=== PATIENT | male | born 1970 | race Caucasian/White ===

== ENCOUNTER 2020-03-10 10:23 | Inpatient (IN) | payer OTHER ==
[~2020-03-10] VITALS: Ht 180.3 cm; Wt 88.2 kg
[2020-03-10] VITALS (16 sets, daily range): BP systolic 109–144; BP diastolic 69–98
[2020-03-10] MEDS ORDERED: normal saline 1000ML IV soln IVB ONE (10:45)
[2020-03-10] MEDS ORDERED: morphine 10mg/ml inj. IV ONE (10:50)
[2020-03-10] MEDS ORDERED: ondansetron 4mg rapidly disintigrating tab PO ONE (10:50)
[2020-03-10 11:11] LABS: BASOPHILS % (AUTO) 0.1 % (0-1); EOSINOPHILS % (AUTO) 0.2 % (0-6); HEMOGLOBIN 15.5 g/dl (14.0-17.9); LYMPHOCYTES # (AUTO) 1.4 X10'3 (1.1-4.8); LYMPHOCYTES % (AUTO) 9.2 % (21-51); MEAN CORPUSCULAR HEMOGLOBIN 31.3 PG (27.0-31.0); MEAN CORPUSCULAR HGB CONC 33.6 g/dL (33.0-36.5); MEAN PLATELET VOLUME 8.4 FL (7.4-10.4); MONOCYTES # (AUTO) 1.3 X10'3 (0-0.9); MONOCYTES % (AUTO) 8.4 % (2-12); NEUTROPHILS # (AUTO) 12.6 X10'3 (1.8-7.7); NEUTROPHILS % (AUTO) 82.1 % (42-75); PLATELET COUNT 256 X10'3 (140-440); RED BLOOD COUNT 4.94 X10'6 (4.70-6.10); RED CELL DISTRIBUTION WIDTH 13.2 % (11.5-14.5); WHITE BLOOD COUNT 15.4 X10'3 (4.5-11.0)
[2020-03-10 11:24] LABS: PARTIAL THROMBOPLASTIN TIME 32 SECONDS (22-32)
[2020-03-10 11:33] LABS: ALANINE AMINOTRANSFERASE 27 U/L (12-78); ALBUMIN 3.9 G/DL (3.4-5.0); ALBUMIN/GLOBULIN RATIO 0.8 (1.1-1.5); ALKALINE PHOSPHATASE 104 IU/L (46-116); ANION GAP 12 (8-16); ASPARTATE AMINO TRANSFERASE 17 U/L (10-37); BILIRUBIN,TOTAL 0.8 MG/DL (0.1-1.0); BLOOD UREA NITROGEN 13 MG/DL (7-18); BUN/CREATININE RATIO 12.5 (5.4-32.0); CALCIUM 9.5 MG/DL (8.5-10.1); CHLORIDE 102 MMOL/L (99-107); CREATININE 1.04 MG/DL (0.60-1.10); GLUCOSE 112 MG/DL (70-104); MAGNESIUM 2.1 MG/DL (1.5-2.4); POTASSIUM 3.8 MMOL/L (3.5-5.1); SODIUM 139 MMOL/L (135-145); TOTAL CARBON DIOXIDE 25.5 MMOL/L (24-32); TOTAL PROTEIN 8.8 G/DL (6.4-8.2); eGFR 76 ML/MIN
[2020-03-10] MEDS ORDERED: piperacillin/tazo 3.375gm/50ml 50 ML IV ONE (11:35)
[2020-03-10] MEDS ORDERED: vancomycin/NS 1 GM ADD-VANTAGE 250 ML IV ONE (11:35)
[2020-03-10] MEDS ORDERED: normal saline 1000ML IV soln IV ONE (11:40)
[2020-03-10] MEDS ORDERED: NO HOME MEDS (11:47)
[2020-03-10] MEDS ORDERED: acetaminophen 650mg rectal suppository RC PRN (12:10)
[2020-03-10] MEDS ORDERED: mag hydrox/Alum hydrox/simeth 30ml oral suspension PO PRN (12:10)
[2020-03-10] MEDS ORDERED: potassium Cl 20 mEq SR tablet PO PRN ×2 (12:10)
[2020-03-10] MEDS ORDERED: metoclopramide 5 mg/ml inj IV PRN (12:10)
[2020-03-10] MEDS ORDERED: bisacodyl 10mg suppository rectal RC PRN (12:10)
[2020-03-10] MEDS ORDERED: magnesium 2GM in 50ml NS 50 ML IV PRN (12:10)
[2020-03-10] MEDS ORDERED: magnesium hydroxide 30ml (MOM) UD suspension PO PRN (12:10)
[2020-03-10] MEDS ORDERED: magnesium 4gm in 100ml NS 100 ML IV PRN (12:10)
[2020-03-10] MEDS ORDERED: HYDROmorphone inj. 0.5 MG/0.5 ML DISP.SYRIN IV PRN (12:10)
[2020-03-10] MEDS ORDERED: HYDROcodone/acetaminophen 10/325mg tab PO PRN (12:10)
[2020-03-10] MEDS ORDERED: acetaminophen 325mg tablet PO PRN ×2 (12:10)
[2020-03-10] MEDS ORDERED: HYDROcodone/acetaminophen 5mg/325mg tablet PO PRN (12:10)
[2020-03-10] MEDS ORDERED: HYDROmorphone 1 mg/ml syringe IV PRN (12:10)
[2020-03-10] MEDS ORDERED: magnesium Cl slow-release 64mg tablet PO PRN (12:10)
[2020-03-10] MEDS ORDERED: potassium CL 10mEq/100ml bag 100 ML IV PRN ×2 (12:10)
[2020-03-10] MEDS ORDERED: ondansetron/PF 4mg/2ml inj IV PRN ×2 (12:10→15:45)
--- NOTE | 2020-03-10 13:58 | NUR ---
Patient just got here from ER. Patient alert, oriented x 4. Per Dr. Nolasco, we should start contact isolation precaution as patient has history of MRSA. Isolation precaution initiated.
--- NOTE | 2020-03-10 14:47 | NUR ---
Notified OR Charge nurse Nayan about patient history of MRSA and that Dr. Nolasco requesting wound culture done during surgery. He said he will make note of it
[2020-03-10 14:56] LABS: CLARITY,URINE CLEAR (Clear); COLOR,URINE YELLOW (Yellow); GLUCOSE, URINE NEGATIVE (Neg); KETONES,URINE 15 mg/dl (Neg); LEUKOCYTE ESTERASE ,URINE NEGATIVE (Neg); NITRITES, URINE NEGATIVE (Neg); OCCULT BLOOD,URINE LARGE (Neg); PH,URINE 5.5 (4.8-8.0); PROTEIN,URINE 30 mg/dl (Neg)
[2020-03-10 15:05] LABS: UA COLLECTION TYPE CLN CATCH MIDSTREAM
[2020-03-10 15:06] LABS: BACTERIA,URINE 1+ /HPF (Neg); MUCUS STRANDS FEW /LPF (Neg); SQUAMOUS EPITHELIAL CELL,UR FEW /LPF (FEW)
[2020-03-10 15:07] LABS: WBC,URINE 0-4 /HPF (0-4)
[2020-03-10 15:08] LABS: COARSE GRANULAR CAST 0-3 /LPF (NEGATIVE); HYALINE CASTS 0-3 /LPF (NEGATIVE)
[2020-03-10] MEDS ORDERED: ringers solution, lacted 1,000 ML IV SCH (15:44)
[2020-03-10] MEDS ORDERED: morphine 2 MG/ML inj. syringe IV PRN (15:45)
[2020-03-10] MEDS ORDERED: morphine 4 MG/ML inj SYRINge IV PRN (15:45)
[2020-03-10] MEDS ORDERED: proCHLORperazine 10 MG/2 ml inj IV PRN (15:45)
[2020-03-10] MEDS ORDERED: meperidine/PF 25mg/ml syringe IV PRN ×3 (15:45)
[2020-03-10] MEDS ORDERED: acetaminophen 1,000mg/100ml IV 100 ML IV PRN (15:45)
[2020-03-10] MEDS ORDERED: ketorolac trometh. 30mg/ml inj. IV ONE (15:45)
[2020-03-10] MEDS ORDERED: sevoflurane 250ml liquid IH ONE (15:54)
[2020-03-10] MEDS ORDERED: midazolam 2 mg/2 ml injection ONE (15:59)
[2020-03-10] MEDS ORDERED: fentaNYL/PF 50MCG/1 ML 2ML syringe ONE (15:59)
[2020-03-10] MEDS ORDERED: famotidine/PF 10 mg/ml inj IV ONE ×2 (16:00→16:08)
--- NOTE | 2020-03-10 16:00 | NUR ---
Patient went to OR for surgery, Zosyn IV due were not available to sent with patient. Recovery Room nurse Matilde notified about this.
[2020-03-10] MEDS ORDERED: propofol inj 20 ML IV ONE (16:17)
[2020-03-10] MEDS ORDERED: dexamethasone sod phosphate 4mg/ml inj. ONE (16:17)
[2020-03-10] MEDS ORDERED: LIDOcaine 2% (20mg/ml) 5ml vial ONE (16:17)
--- NOTE | 2020-03-10 16:31 | NUR ---
Received from OR via surgical bed, accompanied by Anesthesiologist Toan and report given by Anesthesiolgist. Surgical site with packing no drainage. VS stable, 20G right AC and LR IVF running 100cc/hr. SCDs on, pt responding to questions.
[2020-03-10] MEDS: piperacillin/tazo 3.375gm/50ml 50 ML IV SCH ×2 (17:31→23:33)
--- NOTE | 2020-03-10 17:41 | NUR ---
Report called to receiving nurse. Transferred via surgical bed. Belongings remain in patient's room. Special Issues communicated to receiving nurse Trista CIFUENTES. BLL call light within reach Post op VS stable. Pt states he still does not want to take pain meds at this time. Packing remains in place.
[2020-03-10] MEDS: normal saline 1000ml 1,000 ML IV SCH (17:58)
--- NOTE | 2020-03-10 18:10 | NUR ---
Patient in room [facility]. I have received report from Trista CIFUENTES and had the opportunity to ask questions and assume patient care.
--- NOTE | 2020-03-10 18:10 | NUR ---
Problems reprioritized. Patient report given, questions answered & plan of care reviewed with Bailee CIFUENTES.
[2020-03-10] MEDS: K and/or MAG REPLACEMENT MC SCH (19:10)
[2020-03-10] MEDS: docusate sod 100mg capsule PO SCH (19:16)
[2020-03-10] MEDS: VANCOmycin 1250MG/NS 250ml Bag 250 ML IV SCH (19:32)
[2020-03-10] MEDS ORDERED: temazepam 15mg capsule PO PRN (21:00)
[2020-03-11] VITALS: BP 114/67
[2020-03-11 04:00] VITALS: BP 121/74
[2020-03-11] MEDS: VANCOmycin 1250MG/NS 250ml Bag 250 ML IV SCH (04:34)
[2020-03-11] MEDS: normal saline 1000ml 1,000 ML IV SCH ×2 (04:34→08:09)
[2020-03-11 05:39] LABS: BASOPHILS % (AUTO) 0.2 % (0-1); EOSINOPHILS % (AUTO) 0 % (0-6); HEMATOCRIT 41.5 % (42.0-52.0); LYMPHOCYTES # (AUTO) 0.8 X10'3 (1.1-4.8); LYMPHOCYTES % (AUTO) 7.5 % (21-51); MEAN CORPUSCULAR HGB CONC 33.7 g/dL (33.0-36.5); MEAN CORPUSCULAR VOLUME 92.1 FL (78-98); MEAN PLATELET VOLUME 8.8 FL (7.4-10.4); MONOCYTES # (AUTO) 0.6 X10'3 (0-0.9); MONOCYTES % (AUTO) 5.3 % (2-12); NEUTROPHILS # (AUTO) 9.5 X10'3 (1.8-7.7); PLATELET COUNT 252 X10'3 (140-440); RED CELL DISTRIBUTION WIDTH 12.6 % (11.5-14.5); WHITE BLOOD COUNT 10.9 X10'3 (4.5-11.0)
[2020-03-11 06:04] LABS: ALANINE AMINOTRANSFERASE 27 U/L (12-78); ALBUMIN/GLOBULIN RATIO 0.7 (1.1-1.5); ALKALINE PHOSPHATASE 85 IU/L (46-116); ANION GAP 11 (8-16); ASPARTATE AMINO TRANSFERASE 15 U/L (10-37); BILIRUBIN,TOTAL 0.7 MG/DL (0.1-1.0); BLOOD UREA NITROGEN 11 MG/DL (7-18); BUN/CREATININE RATIO 12.1 (5.4-32.0); CALCIUM 8.5 MG/DL (8.5-10.1); CHLORIDE 104 MMOL/L (99-107); CREATININE 0.91 MG/DL (0.60-1.10); GLUCOSE 122 MG/DL (70-104); MAGNESIUM 2.2 MG/DL (1.5-2.4); POTASSIUM 3.6 MMOL/L (3.5-5.1); SODIUM 139 MMOL/L (135-145); TOTAL CARBON DIOXIDE 24.2 MMOL/L (24-32); TOTAL PROTEIN 7.2 G/DL (6.4-8.2); eGFR 88 ML/MIN
--- NOTE | 2020-03-11 06:33 | NUR ---
Patient in room [facility] 340. I have received report from Nika CIFUENTES and had the opportunity to ask questions and assume patient care.
[2020-03-11 07:00] VITALS: BP 139/89
[2020-03-11] MEDS: K and/or MAG REPLACEMENT MC SCH (08:00)
[2020-03-11] MEDS: piperacillin/tazo 3.375gm/50ml 50 ML IV SCH (08:32)
[2020-03-11] MEDS: docusate sod 100mg capsule PO SCH (08:34)
--- NOTE | 2020-03-11 09:41 | NUR ---
PAGER ID: [phone] MESSAGE: Nika-Surg [phone] Re: Rose Charge wants me to notify you that Dr Coleman is ok for patient to be discharged when you see them, Thank You
[2020-03-11 11:00] VITALS: BP_SYST 139; BP_SYST 143; BP_DIAS 89; BP_DIAS 95
--- NOTE | 2020-03-11 12:30 | NUR ---
PAGER ID: [phone] MESSAGE: Nika-Surg [id number] Re: Yasmanially do you want patient to have 1200 Vancomycin before discharge ? Addendum: 03/11/20 at 1231 by Nika Abdalla RN Per Dr Nolasco don't need to given antibiotic prior to discharge
--- NOTE | 2020-03-11 14:00 | NUR ---
Patients discharge instructions reviewed with patient and patient verbalized understanding. Patients Packing removed per Dr Coleman instructions. I&D site looks good patient tolerated well. Patient given fresh pair of underwear to wear and and ABD pad to place in underwear for drainage. Patient was given extra ABD dressings for home , santi bottle for cleaning after bowel movements. Patient instructed to have cleanse in the shower with removable shower head multiple times a day, patient verbalized understanding. Patient ambulated to his vehicle with IRVING Garcia, patient states he has all his belongings.
[2020-03-11] MEDS ORDERED: VANCOMYCIN LEVEL IV ONE (19:30)
== END 2020-03-11 14:02 | disposition home or self-care (01) | DRG 346 ==
LOC: ER 10:25 → SUR 3N 12:09
PROVIDERS: ADMIT Family Medicine; ATTEND Family Medicine
PROC: 0D9P0ZZ Drainage of Rectum, Open Approach (ICD-10-PCS; principal; 2020-03-11)
DX: K61.1 Rectal abscess (principal); I10 Essential (primary) hypertension; K62.89 Other specified diseases of anus and rectum; Z86.14 Personal history of Methicillin resistant Staphylococcus aureus infection
CPT/HCPCS: 96365; 96375; 99285; Z7506; 36415; 71045; 80053; 81001; 83605; 83735; 84145; 85025; 85610; 85730; 87040; 87070; 87075; 87077; 87081; 87185; 93005; A4618; A6253; A6266; A6449; A7000; G0378; J1100; J2001; J2250; J2270; J2543; J2704; J3010; J3370; J3490; J7030